=== PATIENT | male | born 1960 | race Caucasian/White ===

== ENCOUNTER 2016-08-26 07:57 | Day surgery (SDC) | payer OTHER ==
[~2016-08-26] VITALS: Ht 180.3 cm; Wt 83.9 kg
[~2016-08-26 07:57] MED LIST: ACYC400T2 PO; CEFAZOLIN 2 GM/50 ML (PMX) 50 ML IVPB SCH; SOD CHLORIDE 0.9% 1,000 ML IV SCH
[2016-08-26 08:31] VITALS: Ht 180.3 cm; Wt 83.9 kg
[2016-08-26] MEDS ORDERED: FLUT16SP17 NASAL (08:33)
[2016-08-26] MEDS ORDERED: NAPROXEN PO (08:33)
[2016-08-26 08:36] VITALS: BP 117/66; PULSE 55; RESP 16
[2016-08-26 08:42] LABS: BASOPHILS % 0.5 % (0.0-2.0); EOSINOPHILS # 0.1 10^3/ul (0.0-0.5); EOSINOPHILS % 0.9 % (0.0-7.0); HEMATOCRIT 45.9 % (42.0-52.0); HEMOGLOBIN 16.2 g/dl (14.0-18.0); LYMPHOCYTES % 30.3 % (15.0-51.0); MEAN CORPUSCULAR HEMOGLOBIN 32.2 pg (29.0-33.0); MEAN CORPUSCULAR HGB CONC 35.4 g/dl (32.0-37.0); MEAN CORPUSCULAR VOLUME 91.1 fl (82.0-101.0); MEAN PLATELET VOLUME 7.3 fl (7.4-10.4); MONOCYTE # 0.5 10^3/ul (0.3-0.9); MONOCYTES % 7.3 % (0.0-11.0); PLATELET COUNT 189 10^3/UL (140-440); RED BLOOD COUNT 5.04 10^6/ul (4.70-6.10); RED CELL DISTRIBUTION WIDTH 12.8 % (11.5-14.5); UNCORRECTED WBC 6.6 10^3/ul (4.8-10.8); WHITE BLOOD COUNT 6.6 10^3/ul (4.8-10.8)
[2016-08-26 08:45] LABS: CONDITION 1; INR 1.01; PROTIME 13.3 Sec (12.2-14.2)
[2016-08-26 08:46] LABS: PARTIAL THROMBOPLASTIN TIME 27.6 Sec (25.0-35.0)
--- NOTE | 2016-08-26 08:47 | RADRPT ---
PROCEDURE: XR Chest. CLINICAL INDICATION: Preoperative evaluation. TECHNIQUE: Single frontal chest x-ray. COMPARISON: Exam dated 02/18/2014. FINDINGS: The cardiomediastinal silhouette is within normal limits. The lungs are clear without focal consol idation, effusion, or pneumothorax. There are no acute osseous abnormalities. IMPRESSION: 1. No acute cardiopulmonary abnormality. RPTAT: GG .Yousif Yap MD, MD Date Time Electronically viewed and signed by .Yousif Yap MD, MD on 08/26/2016 08:47 .P/
[2016-08-26] MEDS ORDERED: BUPIVACAINE 0.5% (SDV) 30 ML INJ ONE (09:02)
[2016-08-26] MEDS ORDERED: LIDOCAINE 2% (MDV) 20 ML INJ ONE (09:03)
[2016-08-26] MEDS ORDERED: BUPIVACAINE 0.25% (MPF) 30 ML INJ ONE (09:03)
[2016-08-26 09:17] LABS: CALCIUM 9.3 mg/dl (8.4-10.2); CREATININE 0.95 mg/dl (0.61-1.24); POTASSIUM 4.2 mmol/L (3.5-5.1)
[2016-08-26] MEDS ORDERED: FENTAnyl 50 MCG/ML VIAL ONE (09:17)
[2016-08-26] MEDS ORDERED: MIDAZOLAM 1 MG/ML 2 ML INJ ONE (09:22)
[2016-08-26] MEDS ORDERED: CEFAZOLIN 1 GM INJ ONE (09:23)
[2016-08-26] MEDS ORDERED: MEPERIDINE 25 MG INJ IV PRN (10:00)
[2016-08-26] MEDS ORDERED: ONDANSETRON 4 MG INJ IV PRN (10:00)
[2016-08-26] MEDS ORDERED: DIPHENHYDRAMINE 50 MG INJ IV PRN (10:00)
[2016-08-26] MEDS ORDERED: HYDROmorphONE (0.2 MG/ML) 10ML SYG IV PRN ×3 (10:00)
[2016-08-26] MEDS ORDERED: HYDROCODONE/APAP (5/325) TAB PO ONE (10:00)
[2016-08-26] MEDS ORDERED: FENTAnyl 50 MCG/ML VIAL IV PRN ×2 (10:00)
[2016-08-26 10:03] VITALS: BP 132/77; PULSE 48; RESP 10
[2016-08-26 10:08] VITALS: BP 115/76; PULSE 50; RESP 25
[2016-08-26 10:13] VITALS: BP 119/86; PULSE 48; RESP 21
[2016-08-26 10:18] VITALS: BP 124/78; PULSE 53; RESP 17
[2016-08-26 10:31] VITALS: BP 118/73; PULSE 51; RESP 16
--- NOTE | 2016-08-26 11:55 | OPR ---
DATE OF OPERATION: 08/26/2016 INDICATION: This is a 56-year-old male with a right arm, left abdomen and left hips masses. He req uests surgical excision. Risks, alternatives, benefits, and personnel were discussed with the patie nt. Patient expressed understanding and consents to the operation. PREOPERATIVE DIAGNOSIS: Right arm, left abdomen and left mass. POSTOPERATIVE DIAGNOSIS: Right arm, left abdomen and left mass. OPERATION PERFORMED: 1. Excision of right arm mass with 2 cm in size incision and 2 size cm. 2. Left abdomen excision of mass with 2 cm incision and 2 cm mass. 3. Left hip mass with 5 cm size incision and 4 cm size mass. SURGEON: Boris Zuniga MD SPECIMEN: Right arm, left abdomen and left hip masses. COMPLICATIONS: None. ANESTHESIA: MAC. DESCRIPTION OF PROCEDURE: The patient was taken to the OR and prepped and draped in the usual steri le fashion. Surgical timeout was performed. IV antibiotics were given. Right arm transverse incis ion was made with a 15 blade after local anesthesia was infiltrated in all sites. Dissection cauter y was carried down to the mass and circumferentially excised. There was good hemostasis. The incis ion was closed in a multilayer fashion localized incision is then made on the abdominal mass with a transverse incision with a 15 blade. Dissection cautery was carried out down to the mass and circum ferentially excised. There was good hemostasis. Due to tissue defect, localized adjacent tissue t ransfer with the skin flaps were performed. Multilayer closure with interrupted 3-0 Vicryl and skin deion. Left hip mass was excised in a similar fashion with a 15 blade. Dissection cautery was ca rried down to the mass and circumferentially excised. There was good hemostasis. Due to tissue def ect, localized adjacent tissue transfer with the use of skin slaps was performed. Multilayer closur e then injected with 3-0 Vicryl and skin deion. Dry dressings were applied. Dictated By: BORIS VELASQUEZ/ANGEL Conf#: [id number] DID#: [id number]
--- NOTE | 2016-08-28 09:23 | RADRPT ---
Vent Rate: 50 bpm RR Interval: 0 msec NE Interval: 152 msec QRS Duration: 88 msec QT Interval: 414 msec QTC Interval: 377 msec P-R-T Timblin: 67 - 57 - 50 degrees Sinus bradycardia with premature atrial complexes Otherwise normal ECG Electronically Signed By: Fred Liao [id number]
== END 2016-08-26 12:10 | disposition home or self-care (01) ==
LOC: SDS 07:57
PROVIDERS: ATTEND Surgery
DX: D17.21 Benign lipomatous neoplasm of skin and subcutaneous tissue of right arm (principal); D17.1 Benign lipomatous neoplasm of skin and subcutaneous tissue of trunk; D17.24 Benign lipomatous neoplasm of skin and subcutaneous tissue of left leg
CPT/HCPCS: 11400; 12031; 14000; 14020; 71010; 80048; 85025; 85610; 85730; 88304; 93005; J0690; J2250; J3010; Z7512; Z7610